=== PATIENT | male | born 2000 | race Two or more races ===

== ENCOUNTER 2022-10-20 17:18 | Emergency (ER) | payer OTHER ==
[~2022-10-20] VITALS: Ht 175.3 cm; Wt 63.5 kg
== END 2022-10-20 21:15 | disposition home or self-care (01) ==
LOC: ER 17:18
DX: S91.332A Puncture wound without foreign body, left foot, initial encounter (principal); X58.XXXA Exposure to other specified factors, initial encounter; Y93.9 Activity, unspecified; Y92.9 Unspecified place or not applicable; Y99.9 Unspecified external cause status